=== PATIENT | male | born 2000 | race Caucasian/White ===

== ENCOUNTER 2020-04-20 02:13 | Emergency (ER) | payer OTHER ==
[~2020-04-20] VITALS: Ht 185.4 cm; Wt 88.5 kg
[2020-04-20 02:31] VITALS: Ht 185.4 cm; Wt 88.5 kg
[2020-04-20 04:54] VITALS: BP 108/59
== END 2020-04-20 04:54 | disposition home or self-care (01) ==
LOC: ED 02:13
DX: M25.561 Pain in right knee (principal); W18.30XA Fall on same level, unspecified, initial encounter; Y93.89 Activity, other specified; Y92.89 Other specified places as the place of occurrence of the external cause; Y99.8 Other external cause status
CPT/HCPCS: Q0092